=== PATIENT | female | born 1940 | race Caucasian/White ===

== ENCOUNTER 2016-07-31 19:29 | Emergency (ER) | payer BC, MEDICARE ==
[~2016-07-31 19:29] MED LIST: ALL DAY ALLERGY10 MG PO; ASPIR 8181 MG PO; ENALAPRIL MALEA20 MG PO; FISH OIL 1,0001 CA PO; IMDUR30 MG PO; KEFLEX250 MG PO; LOPRESSOR25 MG/TAB PO; MOTRIN800 MG PO; OMEPRAZOLE20 M2 PO; TRILIPIX135 MG PO; TYLENOL #31 TAB PO; VICTOZA0.6 MG/0.1 SQ; VYTORIN 10/201 TAB PO; Victoza SQ
[2016-07-31] MEDS ORDERED: NORCO 5-325 TA1 EACH PO (21:39)
== END 2016-07-31 21:59 ==
LOC: EDMED 19:29
PROC: 2W3CX1Z Immobilization of Right Lower Arm using Splint (ICD-10-PCS; principal; 2016-07-31)
DX: S52.501A Unspecified fracture of the lower end of right radius, initial encounter for closed fracture (principal); E11.9 Type 2 diabetes mellitus without complications; I10 Essential (primary) hypertension; E78.5 Hyperlipidemia, unspecified; Z79.82 Long term (current) use of aspirin; Z79.899 Other long term (current) drug therapy; W01.0XXA Fall on same level from slipping, tripping and stumbling without subsequent striking against object, initial encounter; Y92.019 Unspecified place in single-family (private) house as the place of occurrence of the external cause